=== PATIENT | male | born 1945 | race Caucasian/White ===

== ENCOUNTER → 2018-03-04 | Outpatient (CLI) | payer MEDICARE, OTHER ==
[2015-02-02 15:31] VITALS: BP 148/76
[~2018-03-04] MED LIST: ASPI81TA50 PO; CANA100T PO; CONTRAST GIVEN MC PRN; GEMF600T4 PO; GLIP5TAB10 PO; LEVO50TA5 PO; LOVA40TA2 PO; TELM40TA PO
[2018-03-04] MEDS: IOHEXOL 300 MG/ML 75 ML VIAL. IV ONE (08:47)
--- NOTE | 2018-03-04 09:23 | RAD ---
CT of the chest with contrast 03/04/2018 INDICATION: Cough, COPD. Night sweats. Former smoker. COMPARISON STUDY: CT of the chest without contrast February 08, 2014. TECHNIQUE: Multidetector CT imaging of the chest was performed following the administration of IV contrast. FINDINGS: Heart size is normal. No pericardial effusion is identified. Coronary calcification is noted. Scattered small mediastinal lymph nodes are seen without evidence of pathologically enlarged mediastinal adenopathy. No pneumothorax or pleural effusion is identified. There is a 3 mm noncalcified nodule right middle lobe along the minor fissure. This may represent a small intrapulmonary lymph node. This appears be present on prior exam Y that time it was not as well defined, likely relating to differences in technique/slice thickness. There is a 1 to 2 mm nodule in the left upper lobe anteriorly (axial image 36). No focal consolidative infiltrate is seen. Cholelithiasis noted in the upper abdomen. No acute abnormalities of the upper abdomen are appreciated. No acute osseous changes are seen. Degenerative changes of the thoracic spine are noted. IMPRESSION: 1. 1 to 2 mm noncalcified nodule, left upper lobe. Given high risk indication, 12 month follow-up CT recommended. 2. 3 mm noncalcified nodule, right middle lobe lung minor fissure. This may represent a fissural lymph node, and appears to be present on exam from 2013, though it is poorly visualized on comparison exam. Attention on follow-up study recommended. 3. No other acute cardiopulmonary process is seen Pulmonary Nodule Followup: Fleischner Society recommendations (Radiology 2005; 237; 395-400): In a low risk patient: 4mm or less - No follow up required. >4-6mm- 12 month follow up, if unchanged, no further follow up. >6-8mm- 6-12 month follow up, then at 18-24 months if no change. >8mm- 3, 9, 24 month follow up or consideration of PET/CT. In a high risk patient: <4mm - 12 month follow up, if unchanged then no further follow up. >4-6mm- 6-12 month follow up, then at 18-24 months if no change. >6-8mm- 3-6 month follow up, then at 9-12 months and [address] no [address] DOSING PQRS STATEMENT: One or more of the following individualized dose reduction techniques were utilized for this examination: 1. Automated exposure control 2. Adjustment of the mA and/or kV according to patient size 3. Use of iterative reconstruction technique Electronically signed by: Robert Penaloza MD (03/04/2018 9:18 AM) [facility]
== END | disposition home or self-care (01) ==
LOC: CT 07:56
PROVIDERS: ATTEND Family Medicine
DX: J44.9 Chronic obstructive pulmonary disease, unspecified (principal); R91.1 Solitary pulmonary nodule; I25.10 Atherosclerotic heart disease of native coronary artery without angina pectoris; K80.80 Other cholelithiasis without obstruction; M47.894 Other spondylosis, thoracic region; Z87.891 Personal history of nicotine dependence
CPT/HCPCS: 71260; Q9967

== ENCOUNTER → 2019-04-28 | Outpatient (CLI) | payer MEDICARE, OTHER ==
[2015-02-02 15:31] VITALS: BP 148/76
[~2019-04-28] MED LIST changes: -CONTRAST GIVEN MC PRN; -GEMF600T4 PO; +GEMF600T8 PO
[2019-04-28 13:25] LABS: BASO # 0.1 x10^3/uL (0.0-0.2); BASO % 1 % (0-3); EOS # 0.1 x10^3/uL (0.0-0.7); EOS % 2 % (0-3); HEMATOCRIT 51.3 % (39.0-53.0); HEMOGLOBIN 17.3 g/dL (13.0-17.5); LYMPH % 28 % (24-48); MEAN CORPUSCULAR HEMOGLOBIN 30 pg (25-35); MEAN CORPUSCULAR HGB CONC 34 g/dL (31-37); MEAN CORPUSCULAR VOLUME 90 fL (79-100); MONO # 0.6 x10^3/uL (0.0-1.1); MONO % 8 % (0-9); NEUT # 4.5 x10^3uL (1.8-7.7); NEUT % 61 % (31-73); PLATELET COUNT 194 x10^3/uL (140-400); WHITE BLOOD COUNT 7.3 x10^3/uL (4.0-11.0)
[2019-04-28 13:35] LABS: ALBUMIN 4.1 g/dL (3.4-5.0); ALBUMIN/GLOBULIN RATIO 1.3 (1.0-1.7); GFR 72.8; POTASSIUM 3.9 mmol/L (3.5-5.1); TOTAL BILIRUBIN 2.6 mg/dL (0.2-1.0); TOTAL PROTEIN 7.2 g/dL (6.4-8.2)
--- NOTE | 2019-04-28 15:15 | RAD ---
Right upper quadrant abdominal ultrasound without comparison for right upper quadrant pain. Technique and findings: Real-time grayscale and color Doppler evaluation of the right upper quadrant abdominal organs is performed. There is diffuse fatty infiltration of the liver. No definite discrete parenchymal abnormalities are identified. No intra or extrahepatic biliary ductal dilatation. Common bile duct measures 4 mm in diameter. Visualized portions the pancreatic head and proximal body are normal in appearance. Distal body and tail are obscured. The gallbladder is fluid distended and free of any shadowing stones or sludge. Small echogenic reflector at the interface of the gallbladder and liver may represent a small hepatic or gallbladder wall calcification, and is of doubtful clinical significance. The right kidney measures 10.5 cm is normal in appearance with no hydronephrosis or perinephric fluid. IMPRESSION: 1. Diffuse fatty infiltration of the liver. 2. No evidence of acute cholecystitis. Electronically signed by: Geraldo Love MD (04/28/2019 3:12 PM) [facility]
[2019-04-29 00:06] LABS: HEMOGLOBIN A1C 5.5 % (4.8-5.6)
== END | disposition home or self-care (01) ==
LOC: US 12:49
PROVIDERS: ATTEND Family Medicine
DX: K76.0 Fatty (change of) liver, not elsewhere classified (principal); R79.89 Other specified abnormal findings of blood chemistry
CPT/HCPCS: 36415; 76705; 80053; 83036; 83690; 85025

== ENCOUNTER → 2019-05-04 | Outpatient (CLI) | payer MEDICARE, OTHER ==
[2015-02-02 15:31] VITALS: BP 148/76
[~2019-05-04] MED LIST changes: +SINCALIDE 2 MCG in IV NORMAL SALINE 50ML 30 ML IV ONE
--- NOTE | 2019-05-04 12:00 | RAD ---
EXAM: Nuclear hepatobiliary scan. HISTORY: Pain. TECHNIQUE: Following intravenous administration of 5.5 mCi Tc 99m Choletec, anterior images of the abdomen were obtained at five minute intervals through one hour. Subsequently, 2.0 micrograms Kinevac was administered and additional images to assess gallbladder ejection fraction were obtained. FINDINGS: There is prompt radiotracer uptake by the liver. No focal defect is seen. There is normal excretion into the biliary tree. The gallbladder is visualized within sixty minutes and there is free flow into the duodenum. The gallbladder ejection fraction is 22%. IMPRESSION: Decrease gallbladder ejection fraction of 22%. Electronically signed by: Paulette Calderon MD (05/04/2019 11:57 AM) [facility] [place]
== END | disposition home or self-care (01) ==
LOC: NM 09:06
PROVIDERS: ATTEND Family Medicine
DX: K80.20 Calculus of gallbladder without cholecystitis without obstruction (principal)
CPT/HCPCS: 78227; A9537; J2805

== ENCOUNTER → 2021-01-30 | Outpatient (CLI) | payer MEDICARE, OTHER ==
[2015-02-02 15:31] VITALS: BP 148/76
[~2021-01-30] MED LIST changes: +GEMF-24 PO; -GEMF600T8 PO; -SINCALIDE 2 MCG in IV NORMAL SALINE 50ML 30 ML IV ONE
[2021-01-30 09:24] LABS: BASO # 0.1 x10^3/uL (0.0-0.2); BASO % 1 % (0-3); EOS # 0.2 x10^3/uL (0.0-0.7); EOS % 2 % (0-3); HEMATOCRIT 45.5 % (39.0-53.0); HEMOGLOBIN 15.5 g/dL (13.0-17.5); LYMPH # 2.1 x10^3/uL (1.0-4.8); LYMPH % 31 % (24-48); MEAN CORPUSCULAR HEMOGLOBIN 31 pg (25-35); MEAN CORPUSCULAR HGB CONC 34 g/dL (31-37); MEAN CORPUSCULAR VOLUME 90 fL (79-100); MONO # 0.6 x10^3/uL (0.0-1.1); MONO % 9 % (0-9); NEUT # 3.9 x10^3uL (1.8-7.7); NEUT % 57 % (31-73); PLATELET COUNT 185 x10^3/uL (140-400); RED BLOOD COUNT 5.05 x10^6/uL (4.30-5.70); RED CELL DISTRIBUTION WIDTH 13.3 % (11.5-14.5); WHITE BLOOD COUNT 6.8 x10^3/uL (4.0-11.0)
[2021-01-30 09:38] LABS: ALBUMIN/GLOBULIN RATIO 1.3 (1.0-1.7); CALCIUM 8.8 mg/dL (8.5-10.1); CREATININE 1.1 mg/dL (0.7-1.3); GFR 64.9; POTASSIUM 4.1 mmol/L (3.5-5.1); TOTAL BILIRUBIN 2.2 mg/dL (0.2-1.0); TOTAL PROTEIN 7.1 g/dL (6.4-8.2)
[2021-01-30 16:20] LABS: FREE T4 1.02 ng/dL (0.76-1.46); THYROID STIM HORMONE (TSH) 2.262 uIU/mL (0.358-3.740)
== END ==
LOC: LAB 08:31
PROVIDERS: ATTEND Family Medicine
DX: R07.89 Other chest pain (principal); E03.9 Hypothyroidism, unspecified
CPT/HCPCS: 36415; 80053; 80061; 82550; 84439; 84443; 84484; 85025

== ENCOUNTER 2021-04-18 18:40 | Emergency (ER) | payer MEDICARE, OTHER ==
[~2021-04-18] VITALS: Ht 175.3 cm; Wt 81.8 kg
[2021-04-18] MEDS ORDERED: INSULIN REGULAR VIAL 100 UNIT in IV NORMAL SALINE 100ML 100 ML IV PRN (19:00)
[2021-04-18] MEDS ORDERED: IV NORMAL SALINE 1,000ML 1,000 ML IV SCH (19:00)
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
--- NOTE | 2021-04-18 19:25 | RAD ---
AP chest. HISTORY: Dyspnea AP view was taken of the chest. Lungs are free of infiltrates. Heart is normal in size. There is no p leural effusion. IMPRESSION: 1. No acute chest disease. Electronically signed by: Eduard Sagastume MD (04/18/2021 7:22 PM) [facility]
[2021-04-18] MEDS ORDERED: INSULIN REGULAR 100 UNIT/ML 3ML VIAL. IV ONE (19:45)
[2021-04-18 20:48] LABS: BASO % 0 % (0-3); EOS % 0 % (0-3); HEMATOCRIT 48.9 % (39.0-53.0); HEMOGLOBIN 16.6 g/dL (13.0-17.5); LYMPH # 1.4 x10^3/uL (1.0-4.8); LYMPH % 11 % (24-48); MEAN CORPUSCULAR HEMOGLOBIN 30 pg (25-35); MEAN CORPUSCULAR HGB CONC 34 g/dL (31-37); MEAN CORPUSCULAR VOLUME 89 fL (79-100); MONO # 0.6 x10^3/uL (0.0-1.1); MONO % 5 % (0-9); NEUT # 10.4 x10^3uL (1.8-7.7); NEUT % 84 % (31-73); PLATELET COUNT 235 x10^3/uL (140-400); RED CELL DISTRIBUTION WIDTH 13.2 % (11.5-14.5); WHITE BLOOD COUNT 12.3 x10^3/uL (4.0-11.0)
[2021-04-18 20:51] LABS: BACTERIA,URINE 0 /HPF (0-FEW); BILIRUBIN,URINE NEG (NEG); CALCIUM 9.4 mg/dL (8.5-10.1); CLARITY,URINE CLEAR; COLOR,URINE YELLOW; GFR 72.5; GLUCOSE,URINE >=1000 mg/dL (NEG); NITRITE,URINE NEG (NEG); POTASSIUM 4.8 mmol/L (3.5-5.1); UROBILINOGEN,URINE 0.2 mg/dL (0.2 mg/dL)
[2021-04-18 20:54] LABS: BARBITURATES NEG (NEG); BENZODIAZEPINES NEG (NEG); CANNABINOIDS NEG (NEG); COCAINE NEG (NEG); METHADONE NEG (NEG); OPIATES NEG (NEG); PHENCYCLIDINE NEG (NEG)
[2021-04-18 20:55] LABS: AMPHETAMINE/METHAMPHETAMINE NEG (NEG)
[2021-04-18 21:05] LABS: ALBUMIN 4.7 g/dL (3.4-5.0); DIRECT BILIRUBIN 0.3 mg/dL (0.0-0.2); MAGNESIUM 2.2 mg/dL (1.8-2.4); TOTAL BILIRUBIN 2.1 mg/dL (0.2-1.0); TOTAL PROTEIN 8.1 g/dL (6.4-8.2)
[2021-04-19] MEDS ORDERED: INSULIN REGULAR 100 UNIT/ML 3ML VIAL. IV ONE
[2021-04-19 00:50] VITALS: BP 146/72
--- NOTE | 2021-04-19 04:13 | EKG ---
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
--- NOTE | 2021-04-19 04:14 | EKG ---
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
== END 2021-04-19 01:11 | disposition home or self-care (01) ==
LOC: ER 18:40
DX: E11.65 Type 2 diabetes mellitus with hyperglycemia (principal); I10 Essential (primary) hypertension; E03.9 Hypothyroidism, unspecified; Z91.11 Patient's noncompliance with dietary regimen; Z87.440 Personal history of urinary (tract) infections
CPT/HCPCS: 71045; 80048; 80076; 80307; 81001; 82550; 82947; 83690; 83735; 83880; 84443; 84484; 85025; 85379; 85610; 85730; 93005; 96361; 96374; 96376; 99285; J1815; J7030

== ENCOUNTER → 2021-05-14 | Outpatient (CLI) | payer MEDICARE, OTHER ==
[2021-04-19 00:50] VITALS: BP 146/72
[2021-05-14 09:23] LABS: BASO % 1 % (0-3); EOS # 0.1 x10^3/uL (0.0-0.7); EOS % 2 % (0-3); HEMATOCRIT 45.4 % (39.0-53.0); HEMOGLOBIN 15.5 g/dL (13.0-17.5); LYMPH % 32 % (24-48); MEAN CORPUSCULAR HEMOGLOBIN 30 pg (25-35); MEAN CORPUSCULAR HGB CONC 34 g/dL (31-37); MEAN CORPUSCULAR VOLUME 88 fL (79-100); MONO # 0.6 x10^3/uL (0.0-1.1); MONO % 10 % (0-9); NEUT # 3.5 x10^3uL (1.8-7.7); NEUT % 56 % (31-73); PLATELET COUNT 165 x10^3/uL (140-400); RED BLOOD COUNT 5.16 x10^6/uL (4.30-5.70); WHITE BLOOD COUNT 6.2 x10^3/uL (4.0-11.0)
[2021-05-14 09:29] LABS: ALBUMIN 3.8 g/dL (3.4-5.0); ALBUMIN/GLOBULIN RATIO 1.3 (1.0-1.7); CALCIUM 8.7 mg/dL (8.5-10.1); GFR 72.3; POTASSIUM 3.9 mmol/L (3.5-5.1); TOTAL BILIRUBIN 1.9 mg/dL (0.2-1.0); TOTAL PROTEIN 6.8 g/dL (6.4-8.2)
[2021-05-14 09:54] LABS: BACTERIA,URINE 0 /HPF (0-FEW); BILIRUBIN,URINE NEG (NEG); CLARITY,URINE CLEAR; COLOR,URINE YELLOW; GLUCOSE,URINE NEG (NEG); NITRITE,URINE NEG (NEG); RBC,URINE OCC /HPF (0-2); SQUAMOUS EPITHELIAL CELL,UR FEW /LPF; UROBILINOGEN,URINE 0.2 mg/dL (0.2 mg/dL)
[2021-05-14 16:21] LABS: CHOLESTEROL/HDL RATIO 3.6; FREE T4 0.97 ng/dL (0.76-1.46); THYROID STIM HORMONE (TSH) 2.943 uIU/mL (0.358-3.740)
[2021-05-14 22:07] LABS: TESTOSTERONE TOTAL 750 ng/dL (264-916)
[2021-05-15 00:08] LABS: MICRO CREAT RATIO <3 mg/g creat (0-29); MICROALB RD UR <3.0 ug/mL (Not Estab.)
[2021-05-15 01:08] LABS: HEMOGLOBIN A1C 7.5 % (4.8-5.6)
[2021-05-15 15:11] LABS: FREE PSA/PSA RATIO 22.8 % (.); PSA FREE 0.89 ng/mL; PSA TOTAL 3.9 ng/mL (0.0-4.0)
== END ==
LOC: LAB 08:06
PROVIDERS: ATTEND Family Medicine
DX: I10 Essential (primary) hypertension (principal); E11.65 Type 2 diabetes mellitus with hyperglycemia; N40.0 Benign prostatic hyperplasia without lower urinary tract symptoms; E03.9 Hypothyroidism, unspecified; E78.5 Hyperlipidemia, unspecified; D50.9 Iron deficiency anemia, unspecified; F52.21 Male erectile disorder
CPT/HCPCS: 80053; 80061; 81001; 82043; 82570; 82728; 83036; 83540; 83550; 84153; 84154; 84403; 84439; 84443; 85025